=== PATIENT | female | born 1980 | race Caucasian/White ===

== ENCOUNTER 2018-10-25 06:48 | Day surgery (SDC) | payer MEDICAID, OTHER ==
[~2018-10-25] VITALS: Ht 165.1 cm; Wt 90.1 kg
[~2018-10-25 06:48] MED LIST: BUPIVACAINE/PF-EPI 0.5% 1:200K ONE; INSU500V INJ
[2018-10-25] MEDS ORDERED: LACTATED RINGERS 1,000 ML IV SCH (07:11)
[2018-10-25 07:30] VITALS: BP 134/86
[2018-10-25] MEDS ORDERED: DIAZEPAM 5 MG TABLET PO ONE (07:30)
[2018-10-25] MEDS ORDERED: SCOPOLAMINE PATCH, 1.5MG PATCH.TD72 TD ONE (07:30)
[2018-10-25] MEDS ORDERED: ONDANSETRON ODT 8 MG PO ONE (07:30)
[2018-10-25] MEDS ORDERED: GABAPENTIN 300 MG CAPSULE PO ONE (07:30)
[2018-10-25] MEDS ORDERED: ACETAMINOPHEN 500 MG TABLET PO ONE (07:30)
[2018-10-25 07:50] LABS: BASOPHILS # (AUTO) 0.03 x10^3/uL (0-0.1); BASOPHILS % (AUTO) 1 % (0-1); EOSINOPHILS # (AUTO) 0.12 x10^3/uL (0-0.4); EOSINOPHILS % (AUTO) 3 % (1-7); LYMPHOCYTES # (AUTO) 1.67 x10^3/uL (1-3.4); LYMPHOCYTES % (AUTO) 34 % (22-44); MD NO; MEAN CORPUSCULAR HEMOGLOBIN 29.8 pg (27.0-34.8); MEAN CORPUSCULAR HGB CONC 33.4 g/dL (32.4-35.8); MEAN CORPUSCULAR VOLUME 89.2 fL (80-100); MONOCYTES # (AUTO) 0.33 x10^3/uL (0.2-0.8); MONOCYTES % (AUTO) 7 % (2-9); NEUTROPHILS # (AUTO) 2.79 x10^3/uL (1.8-6.8); NEUTROPHILS % (AUTO) 56 % (42-75); PLATELET COUNT 163 x10^3/uL (130-400); RED BLOOD COUNT 4.38 x10^6/uL (3.82-5.3); RED CELL DISTRIBUTION WIDTH 14.6 % (9.6-15.2)
[2018-10-25 08:00] LABS: INTERNATIONAL NORMALIZED RATIO 0.93 (0.93-1.1); PROTHROMBIN TIME 9.9 Seconds (9.6-11.5)
[2018-10-25 08:03] LABS: HCG UR SG 1.022 (1.003-1.030)
[2018-10-25 08:04] LABS: ALANINE AMINOTRANSFERASE 68 U/L (12-78); ALBUMIN 3.7 g/dL (3.4-5.0); ANION GAP 9 mmol/L (5-15); CALCIUM 8.8 mg/dL (8.5-10.1); CHLORIDE 104 mmol/L (98-107); CREATININE 0.69 mg/dL (0.55-1.02)
[2018-10-25 08:06] LABS: ALKALINE PHOSPHATASE 81 U/L (45-117); BILIRUBIN,TOTAL 0.6 mg/dL (0.2-1.0); TOTAL PROTEIN 7.8 g/dL (6.4-8.2)
[2018-10-25] MEDS ORDERED: FENTANYL PF 100 MCG/2ML ONE ×3 (08:22→11:55)
[2018-10-25] MEDS ORDERED: MIDAZOLAM 1 MG/ML, 2ML ONE (08:22)
[2018-10-25] MEDS ORDERED: hydrALAzine 20 MG/ML, 1ML IV PRN (10:00)
[2018-10-25] MEDS ORDERED: FENTANYL PF 100 MCG/2ML IV PRN (10:00)
[2018-10-25] MEDS ORDERED: ALBUTEROL/IPRATROPIUM 2.5MG/0.5MG, 3 ML NPPB PRN (10:00)
[2018-10-25] MEDS ORDERED: PROMETHAZINE 25 MG/ML, 1ML IV PRN (10:00)
[2018-10-25] MEDS ORDERED: ONDANSETRON 2MG/ML, 2ML IV PRN (10:00)
[2018-10-25] MEDS ORDERED: HYDROmorphone 2 MG/ML, 1ML IVPush PRN (10:00)
[2018-10-25] MEDS ORDERED: OXYcodone 5 MG/5 ML ORAL.SOL UDC PO PRN (10:00)
[2018-10-25] MEDS ORDERED: METOPROLOL 1 MG/ML, 5ML IV PRN (10:00)
[2018-10-25] MEDS ORDERED: MEPERIDINE/PF 25MG/0.5ML IVPush PRN (10:00)
[2018-10-25] MEDS ORDERED: MIDAZOLAM 1 MG/ML, 2ML IV PRN (10:00)
[2018-10-25] MEDS ORDERED: CEFAZOLIN 1,000 MG ONE (10:16)
[2018-10-25] MEDS ORDERED: SUCCINYLCHOLINE 20 MG/ML, 10ML ONE (10:16)
[2018-10-25] MEDS ORDERED: KETOROLAC 30 MG/1 ML ONE (10:16)
[2018-10-25] MEDS ORDERED: NEOSTIGMINE 1 MG/ML, 10ML ONE (10:16)
[2018-10-25] MEDS ORDERED: GLYCOPYRROLATE 0.2MG/1ML, 5ML ONE (10:16)
[2018-10-25] MEDS ORDERED: DEXAMETHASONE 4 MG/ML, 1ML ONE (10:16)
[2018-10-25] MEDS ORDERED: ROCURONIUM 10MG/ML,5ML ONE (10:16)
[2018-10-25] MEDS ORDERED: PROPOFOL 10 MG/ML, 20ML ONE (10:16)
[2018-10-25] MEDS ORDERED: OXYcodone 5 MG/5 ML ORAL.SOL UDC ONE (11:03)
== END 2018-10-25 15:40 | disposition home or self-care (01) ==
LOC: OUT 06:48
PROVIDERS: ATTEND Surgery
DX: K80.10 Calculus of gallbladder with chronic cholecystitis without obstruction (principal); I10 Essential (primary) hypertension; E11.9 Type 2 diabetes mellitus without complications; E66.9 Obesity, unspecified; Z98.890 Other specified postprocedural states; Z72.89 Other problems related to lifestyle; Z68.33 Body mass index [BMI] 33.0-33.9, adult
CPT/HCPCS: 36415; 47562; 80053; 81025; 82962; 83690; 85025; 85610; 88304; J0330; J0690; J1100; J1885; J2250; J2704; J2710; J3010; J3490; J7120; Q0162

== ENCOUNTER 2020-12-30 10:30 | Emergency (ER) | payer OTHER ==
[~2020-12-30] VITALS: Ht 165.1 cm; Wt 84.0 kg
[~2020-12-30 10:30] MED LIST changes: -BUPIVACAINE/PF-EPI 0.5% 1:200K ONE
--- NOTE | 2020-12-30 12:31 | NUR ---
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
--- NOTE | 2020-12-30 13:23 | NUR ---
pt presents to ED with c/o epigastric pain, nausea, neck and bilateral upper back pain x 3 weeks, vomiting x 1 yesterday. pt denies injury/trauma. pt denies fever or sick contacts. pt has full rom to neck, no stiffness. pt placed on all monitors, call light in reach. awaiting labs and dispo.
[2020-12-30 13:30] LABS: BASOPHILS % (AUTO) 0 % (0-1); EOSINOPHILS % (AUTO) 2 % (1-7); LYMPHOCYTES % (AUTO) 31 % (22-44); MEAN CORPUSCULAR HEMOGLOBIN 30.9 pg (27.0-34.8); MEAN PLATELET VOLUME 10.9 fL (7.4-10.4); MONOCYTES % (AUTO) 9 % (2-9); NEUTROPHILS % (AUTO) 57 % (42-75); PLATELET COUNT 152 x10^3/uL (130-400); RED BLOOD COUNT 4.68 x10^6/uL (3.82-5.3); RED CELL DISTRIBUTION WIDTH 13.7 % (9.6-15.2)
[2020-12-30] MEDS ORDERED: MAALOX/HYOSCYAMINE/LIDOCAINE 45 ML BTL PO ONE (13:30)
[2020-12-30] MEDS ORDERED: KETOROLAC 30 MG/1 ML IM ONE (13:30)
[2020-12-30] MEDS ORDERED: METHOCARBAMOL 750 MG TABLET PO ONE (13:30)
[2020-12-30 13:33] LABS: MD NO
--- NOTE | 2020-12-30 13:35 | NUR ---
JOZEF ALCALA NOTIFIED PT'S LMP IS 1.5 WEEKS LATE, SEXUALLY ACTIVE WITH NO CONTROL MEASURES IN PLACE. BETA HCG ADDED TO LABWORK.
[2020-12-30 13:51] LABS: ALANINE AMINOTRANSFERASE 48 U/L (12-78); ALBUMIN 3.5 g/dL (3.4-5.0); ANION GAP 6 mmol/L (5-15); CALCIUM 7.7 mg/dL (8.5-10.1); CHLORIDE 107 mmol/L (98-107); CREATININE 0.69 mg/dL (0.55-1.02)
[2020-12-30 13:55] LABS: ALKALINE PHOSPHATASE 70 U/L (45-117); BILIRUBIN,TOTAL 0.7 mg/dL (0.2-1.0); TOTAL PROTEIN 7.3 g/dL (6.4-8.2)
[2020-12-30] MEDS ORDERED: KETOROLAC 30 MG/1 ML ONE (14:07)
[2020-12-30] MEDS ORDERED: MAALOX/HYOSCYAMINE/LIDOCAINE 45 ML BTL ONE (14:07)
[2020-12-30] MEDS ORDERED: METHOCARBAMOL 750 MG TABLET ONE (14:08)
--- NOTE | 2020-12-30 14:10 | NUR ---
pt in radiology for imaging, to be medicated upon return.
[2020-12-30 14:38] VITALS: BP 132/83
--- NOTE | 2020-12-30 14:56 | NUR ---
Pt medicated per emar, states pain improved since medical doctor md. nsr on library monitor with no ectopy. ekg taken by edt and reviewed by provider. pt given work note for 5 days off per JOZEF Lombardo, pt a&o, resps even and unlabored. pt a&o, resps even and unlabored. nadn. pt given dc instructions and script, educated for rx of zofran, robaxan, and omeprazole. pt ambulatory to dc desk with steady gait. all questions answered.
== END 2020-12-30 14:57 | disposition home or self-care (01) ==
LOC: ED 13:38
DX: S16.1XXA Strain of muscle, fascia and tendon at neck level, initial encounter (principal); K29.50 Unspecified chronic gastritis without bleeding; G89.29 Other chronic pain; R10.13 Epigastric pain; M54.2 Cervicalgia; R11.0 Nausea; R94.31 Abnormal electrocardiogram [ECG] [EKG]; K21.9 Gastro-esophageal reflux disease without esophagitis; X58.XXXA Exposure to other specified factors, initial encounter; Y93.89 Activity, other specified; Y92.89 Other specified places as the place of occurrence of the external cause; Y99.8 Other external cause status
CPT/HCPCS: 36415; 72050; 80053; 83690; 84703; 85025; 93005; 96372; 99285; J1885